=== PATIENT | female | born 1960 | race Caucasian/White ===

== ENCOUNTER 2018-01-09 23:32 | Emergency (ER) | payer OTHER ==
[2018-01-09] MEDS ORDERED: ONDANSETRON 4 MG/2 ML VIAL IVP ONE ×2 (23:45→23:55)
[2018-01-09] MEDS ORDERED: NS 1,000 ML IV ONE ×2 (23:45→23:55)
[2018-01-09] MEDS ORDERED: HYDROmorphONE/DILAUDID 1 MG/ML INJ IVP ONE (23:55)
--- NOTE | 2018-01-10 00:01 | EDPHY ---
H & P Stated Complaint: ABD PAIN 45 MIN AGO, HX OF BAOWEL BLOCK WITH NG TUBE Time Seen by Provider: 01/09/18 23:45 HPI/ROS: Chief Complaint: Abdominal pain, nausea, vomiting HPI: 57-year-old woman with a history of ulcerative colitis and multiple abdominal surgeries coming in with severe abdominal pain nausea vomiting consistent with prior small-bowel obstructions. Patient is visiting her son from [place]. Her last bowel obstruction was 3 weeks ago at which time she was admitted for 10 days. Pain is a 10/10. No fevers or chills. No cough. She is usually treated with an NG tube and bowel rest. She has not had surgery to correct an obstruction in the past. ROS: 10 point Review of Systems is negative except as noted in the HPI. PMH: Ulcerative colitis status post multiple bowel surgeries including bowel resection Social History: No smoking, no alcohol, no recreational drug use Family History: non-contributory Physical Exam: Gen: Awake, Alert, No Distress HEENT: Nose: no rhinorrhea Eyes: PERRLA, EOMI Mouth: Moist mucosa Neck: Supple, no JVD Chest: nontender, lungs clear to auscultation Heart: S1, S2 normal, no murmur Abd: Soft, diffuse abdominal tenderness, no guarding Back: no CVA tenderness, no midline tenderness Ext: no edema, non-tender Skin: no rash Neuro: CN II-XII intact, Sensation grossly intact, Strength 5/5 in bilateral upper and lower extremities - Personal History Current Tetanus/Diphtheria Vaccine: Yes Current Tetanus Diphtheria and Acellular Pertussis (TDAP): Yes - Medical/Surgical History Hx Asthma: No Hx Chronic Respiratory Disease: No Hx Diabetes: No Hx Cardiac Disease: No Hx Renal Disease: No Hx Cirrhosis: No Hx Alcoholism: No Hx HIV/AIDS: No Hx Splenectomy or Spleen Trauma: No Other PMH: BOWEL BLOCKAGE, WITH POUCH, OC, OSTEO WITH PLANNED HIP REPLACEMENT - Social History Smoking Status: Never smoked Constitutional: Initial Vital Signs Temperature (C) 36.5 C 01/09/18 23:33 Heart Rate 82 01/09/18 23:33 Respiratory Rate 18 01/09/18 23:33 Blood Pressure 130/90 H 01/09/18 23:33 O2 Sat (%) 97 01/09/18 23:33 O2 Delivery Mode Room Air O2 (L/minute) 2 Allergies/Adverse Reactions: No Known Allergies Allergy (Unverified 01/09/18 23:38) Medical Decision Making - Diagnostics Imaging Results: CT scan abdomen pelvis shows no small-bowel distention or evidence of small- bowel obstruction. There is moderate amount of retained stool. No other abnormalities per Radiology, Dr. Garland. ED Course/Re-evaluation: 57-year-old with abdominal pain. CT scan is negative for acute obstruction or other intra-abdominal process. Blood work is normal. Symptoms resolved after IV analgesia and fluids. She is tolerating p. O.. Will discharge with follow up with her physician when she returns home. Return for worsening. - Data Points Laboratory Results: Laboratory Results 01/10/18 00:05 01/10/18 00:05 01/10/18 01/10/18 00:05 00:05 WBC 6.54 10^3/uL 10^3/uL (3.80-9.50) RBC 3.97 10^6/uL L 10^6/uL (4.18-5.33) Hgb 11.8 g/dL L g/dL (12.6-16.3) Hct 34.6 % L % (38.0-47.0) MCV 87.2 fL fL (81.5-99.8) MCH 29.7 pg pg (27.9-34.1) MCHC 34.1 g/dL g/dL (32.4-36.7) RDW 13.5 % % (11.5-15.2) Plt Count 441 10^3/uL H 10^3/uL (150-400) MPV 9.0 fL fL (8.7-11.7) Neut % (Auto) 59.5 % % (39.3-74.2) Lymph % (Auto) 30.4 % % (15.0-45.0) [place] % (Auto) 7.5 % % (4.5-13.0) Eos % (Auto) 1.2 % % (0.6-7.6) Baso % (Auto) 0.9 % % (0.3-1.7) Nucleat RBC Rel Count 0.0 % % (0.0-0.2) Absolute Neuts (auto) 3.89 10^3/uL 10^3/uL (1.70-6.50) Absolute Lymphs (auto) 1.99 10^3/uL 10^3/uL (1.00-3.00) Absolute Monos (auto) 0.49 10^3/uL 10^3/uL (0.30-0.80) Absolute Eos (auto) 0.08 10^3/uL 10^3/uL (0.03-0.40) Absolute Basos (auto) 0.06 10^3/uL 10^3/uL (0.02-0.10) Absolute Nucleated RBC 0.00 10^3/uL 10^3/uL (0-0.01) Immature Gran % 0.5 % % (0.0-1.1) Immature Gran # 0.03 10^3/uL 10^3/uL (0.00-0.10) Sodium 139 mEq/L mEq/L (135-145) Potassium 3.6 mEq/L mEq/L (3.5-5.2) Chloride 106 mEq/L mEq/L (97-110) Carbon Dioxide 21 mEq/l L mEq/l (22-31) Anion Gap 12 mEq/L mEq/L (8-16) BUN 10 mg/dL mg/dL (7-23) Creatinine 0.6 mg/dL mg/dL (0.6-1.0) Estimated GFR > 60 Glucose 125 mg/dL H mg/dL (70-100) Calcium 10.0 mg/dL mg/dL (8.5-10.4) Total Bilirubin 0.4 mg/dL mg/dL (0.1-1.4) AST 19 IU/L IU/L (14-46) ALT 38 IU/L IU/L (9-52) Alkaline Phosphatase 57 IU/L IU/L (38-126) Total Protein 7.3 g/dL g/dL (6.3-8.2) Albumin 4.4 g/dL g/dL (3.5-5.0) Lipase 100 IU/L IU/L (23-300) Medications Given: Discontinued Medications Hydromorphone HCl (Dilaudid) 1 mg IVP EDNOW ONE Stop: 01/09/18 23:56 Last Admin: 01/10/18 00:04 Dose: 1 mg Sodium Chloride (Ns) 1,000 mls @ 0 mls/hr IV ONCE ONE PRN Reason: Wide Open Stop: 01/09/18 23:46 Last Admin: 01/10/18 00:05 Dose: 1,000 mls Sodium Chloride (Ns) 1,000 mls @ 0 mls/hr IV ONCE ONE; Wide Open PRN Reason: Protocol Stop: 01/09/18 23:56 Last Admin: 01/10/18 01:44 Dose: 1,000 mls Lorazepam (Ativan Injection) 1 mg IVP EDNOW ONE Stop: 01/10/18 00:13 Last Admin: 01/10/18 00:15 Dose: 1 mg Ondansetron HCl (Zofran) 4 mg IVP EDNOW ONE Stop: 01/09/18 23:46 Last Admin: 01/10/18 00:04 Dose: 4 mg Ondansetron HCl (Zofran) 4 mg IVP EDNOW ONE Stop: 01/09/18 23:56 Last Admin: 01/10/18 00:19 Dose: Not Given Promethazine HCl (Phenergan) 12.5 mg IVP ONCE ONE Stop: 01/10/18 00:13 Last Admin: 01/10/18 00:17 Dose: 12.5 mg Departure - Departure Disposition: Home, Routine, Self-Care Clinical Impression: Abdominal pain Condition: Good Instructions: Abdominal Pain (ED) Additional Instructions: Follow up with primary care physician in 3-4 days when you return home. Return to the emergency department for increasing abdominal pain, nausea, vomiting, fevers or chills, or any other concerns. Referrals: Patient,NotPresent [Primary Care Provider] - As per Instructions Stand Alone Forms: Airline Excuse
[2018-01-10] MEDS ORDERED: PROMETHAZINE HCL 25 MG/ML INJ ONE (00:11)
[2018-01-10] MEDS ORDERED: LORazepam 2 MG/ML INJ ONE (00:11)
[2018-01-10] MEDS ORDERED: LORazepam 2 MG/ML INJ IVP ONE (00:12)
[2018-01-10] MEDS ORDERED: PROMETHAZINE HCL 25 MG/ML INJ IVP ONE (00:12)
[2018-01-10] MEDS ORDERED: IOPAMIDOL (ISOVUE-300) 100 ML BTL ONE (00:21)
[2018-01-10 00:50] LABS: PLATELET COUNT 441 10^3/uL (150-400)
[2018-01-10 02:34] VITALS: BP 101/54; PULSE 74; RESP 16; TEMP 97.5; O2SAT 93
[2018-01-10] MEDS ORDERED: PROMETHAZINE 25MG SUPP PREPK#4 BTL TAKEHOME ONE (02:36)
== END 2018-01-10 02:33 | disposition home or self-care (01) ==
DX: R10.84 Generalized abdominal pain (principal); E86.9 Volume depletion, unspecified
CPT/HCPCS: 74177; 96361; 96374; 96375; 99285; J1170; J2060; J2405; J2550; Q9967